=== PATIENT | female | born 1990 | race Caucasian/White ===

== ENCOUNTER 2016-12-26 07:18 | Emergency (ER) | payer SELFPAY ==
[2016-12-26 08:23] LABS: Basophils % (Auto) 0.5 % (0.0-1.8); Eosinophils % (Auto) 0.4 % (0.0-4.3); Hematocrit 38.6 % (30.3-42.9); Hemoglobin 12.4 gm/dl (10.1-14.3); Mean Corpuscular HGB Conc 32 % (30-34); Mean Corpuscular Hemoglobin 27 pg (28-32); Mean Corpuscular Volume 83 fl (79-97); Platelet Count 322 K/mm3 (140-440); Red Blood Count 4.66 M/mm3 (3.65-5.03); Red Cell Distribution Width 13.5 % (13.2-15.2); White Blood Count 12.4 K/mm3 (4.5-11.0)
[2016-12-26 08:28] LABS: Alanine Aminotransferase 5 units/L (7-56); Albumin 4.3 g/dL (3.9-5); Albumin/Globulin Ratio 1.1 %; Alkaline Phosphatase 74 units/L (35-129); Anion Gap 17 mmol/L; Bilirubin,Total 0.2 mg/dL (0.1-1.2); Blood Urea Nitrogen 10 mg/dL (7-17); Calcium 9.7 mg/dL (8.4-10.2); Carbon Dioxide 23 mmol/L (22-30); Chloride 103.7 mmol/L (98-107); Glucose 137 mg/dL (65-100); Lipase 15 units/L (13-60); Potassium 4.7 mmol/L (3.6-5.0); Sodium 139 mmol/L (137-145); Total Protein 8.1 g/dL (6.3-8.2)
[2016-12-26 09:11] LABS: Bacteria,Urine 1+ /HPF (Negative); Bilirubin,Urine NEG (Negative); Blood,Urine NEG (Negative); Ketones,Urine TR mg/dL (Negative); Leukocyte Esterase,Urine NEG (Negative); Mucus,Urine FEW /HPF; Nitrite,Urine NEG (Negative); Protein,Urine <15 mg/dL mg/dL (Negative); Urobilinogen,Urine < 2.0 mg/dL (<2.0)
[2016-12-26] MEDS ORDERED: MORPHINE ONE (10:26)
[2016-12-26] MEDS ORDERED: NACL 0.9% 1000 ML 1,000 ML IV ONE (10:28)
[2016-12-26] MEDS ORDERED: MORPHINE IV ONE (10:28)
--- NOTE | 2016-12-26 10:34 | Emergency Department Report ---
HPI - General Chief Complaint: Abdominal Pain Time Seen by Provider: 12/26/16 10:04 - HPI HPI: 26-year-old female presents to the emergency department from home with complaint of upper abdominal pain, lower chest pain and upper back pain has been going on since 3 AM last night. This is associated with nausea and vomiting with about 12 episodes of emesis. By the end, the patient says she has just been vomiting up bile. She was given a oxycodone by her mother at about 5 AM for her discomfort. She denies any fever, shortness of breath, cough , dysuria, vaginal bleeding or discharge. She denies any past medical history. No recent travel or sick contacts at home. She does not have a primary care doctor and she is not getting insurance until the beginning of January. ED Past Medical Hx - Past Medical History Previous Medical History?: No - Surgical History Past Surgical History?: Yes Additional Surgical History: - Social History Smoking Status: Never Smoker Substance Use Type: None - Medications Home Medications: Home Medications Medication Instructions Recorded Confirmed Last Taken Type HYDROcodone/APAP 5-325 [[place] 1 each PO Q6HR PRN #10 tablet 12/26/16 Unknown Rx 5/325] Ondansetron [Zofran Odt] 4 mg PO Q8H PRN #10 tab.rapdis 12/26/16 Unknown Rx ED Review of Systems ROS: Stated complaint: PAIN MIDCHEST AREA AND ABD PAIN Other details as noted in HPI Comment: All other systems reviewed and negative Constitutional: denies: chills, fever Eyes: denies: eye pain, eye discharge, vision change ENT: denies: ear pain, throat pain Respiratory: denies: cough, shortness of breath, wheezing Cardiovascular: chest pain. denies: palpitations Gastrointestinal: abdominal pain, nausea, vomiting Genitourinary: denies: urgency, dysuria, discharge Musculoskeletal: back pain. denies: arthralgia Skin: denies: rash, lesions Neurological: denies: headache, weakness, paresthesias Physical Exam - Physical Exam Vital Signs: Vital Signs 12/26/16 12/26/16 07:38 09:16 Temperature 98.4 F Pulse Rate 66 62 Respiratory 20 16 Rate Blood Pressure 125/83 Blood Pressure 112/58 [Left] O2 Sat by Pulse 99 100 Oximetry Physical Exam: GENERAL: The patient is well-developed well-nourished. HEENT: Normocephalic. Atraumatic. Extraocular motions are intact. Patient has moist mucous membranes. Pupils equal reactive to light bilaterally. NECK: Supple. Trachea is midline. CHEST/LUNGS: Clear to auscultation. There is no respiratory distress noted. HEART/CARDIOVASCULAR: Regular. There is no tachycardia. There is no gallop rub or murmur. ABDOMEN: Abdomen is soft. Right upper quadrant abdominal tenderness to palpation. No guarding rebound tenderness. Patient has normal bowel sounds. There is no abdominal distention. SKIN: There is no rash. There is no edema. There is no diaphoresis. NEURO: The patient is awake, alert, and oriented. The patient is cooperative. The patient has no focal neurologic deficits. The patient has normal speech. MUSCULOSKELETAL: There is no tenderness or deformity. There is no limitation range of motion. There is no evidence of acute injury. BACK: No midline thoracic or lumbar tenderness to palpation or deformity. ED Course Vital Signs 12/26/16 12/26/16 07:38 09:16 Temperature 98.4 F Pulse Rate 66 62 Respiratory 20 16 Rate Blood Pressure 125/83 Blood Pressure 112/58 [Left] O2 Sat by Pulse 99 100 Oximetry ED Medical Decision Making - Lab Data Result diagrams: 12/26/16 07:50 12/26/16 07:50 - EKG Data -: EKG Interpreted by Me EKG shows normal: sinus rhythm, axis, intervals, QRS complexes, ST-T waves Rate: bradycardia (55 bpm) - EKG Data When compared to previous EKG there are: previous EKG unavailable Interpretation: normal EKG (with mild bradycardia) - Radiology Data Radiology results: report reviewed, image reviewed interpreted by me: Chest x-ray did not show any acute process. Heart is normal shape and size. No effusions. No pneumothorax. No signs of pneumonia seen. Abdominal x-ray shows nonspecific nonobstructive bowel gas and some stool throughout the colon. Abdominal ultrasound shows multiple gallstones but no signs of cholecystitis. - Medical Decision Making 26-year-old female presents with upper abdominal pain, lower chest pain and some mid back pain since last night along with some nausea and vomiting. Patient has reproducible abdominal pain to palpation on examination. Patient's labs are unremarkable including no signs of infection in the blood or urine, electrolyte abnormalities, renal insufficiency and she has normal belly labs including bilirubin, lipase and LFTs. Patient is not . Chest x-ray is not show any acute process. Abdominal x-ray shows some stool throughout the colon but otherwise no acute process. But the areas of the patient's discomfort along with the nausea and vomiting I had suspicion for cholelithiasis. Ultrasound confirms cholelithiasis without cholecystitis. Patient will be discharged home with nausea medication, pain medication and referral for general surgery. She will return to the ER with any worsening of her symptoms or any acute distress. - Differential Diagnosis cholelithiasis, cholecystitis, pancreatitis, gastritis, [place] Critical Care Time: No Critical care attestation.: If time is entered above; I have spent that time in minutes in the direct care of this critically ill patient, excluding procedure time. ED Disposition Clinical Impression: Cholelithiasis Qualifiers: Cholelithiasis location: gallbladder Cholecystitis presence: without cholecystitis Biliary obstruction: without biliary obstruction Qualified Code(s) : K80.20 - Calculus of gallbladder without cholecystitis without obstruction Abdominal pain Qualifiers: Abdominal location: right upper quadrant Qualified Code(s): R10.11 - Right upper quadrant pain Nausea & vomiting Qualifiers: Vomiting type: unspecified Vomiting Intractability: non-intractable Qualified Code(s): R11.2 - Nausea with vomiting, unspecified Disposition: DISCHARGED TO HOME OR SELFCARE Is pt being admited?: No Condition: Stable Instructions: Abdominal Pain (ED), Biliary Colic (ED), Acute Nausea and Vomiting (ED) Additional Instructions: Please follow-up with a primary care doctor. I referral for a local general surgeon, Dr. Ragland, to establish care and discuss your gallstones. Return to the emergency department with any worsening of your symptoms, intractable fever , intractable vomiting, or any acute distress. You've been prescribed a medication that is sedating. Therefore this medication cannot be mixed with alcohol, or taken prior to driving, working, or being responsible for children. Prescriptions: HYDROcodone/APAP 5-325 [[place] 5/325] 1 each PO Q6HR PRN #10 tablet PRN Reason: Pain Ondansetron [Zofran Odt] 4 mg PO Q8H PRN #10 tab.rapdis PRN Reason: Nausea Referrals: PRIMARY CARE, [Primary Care Provider] - 3-5 Days KAYE RAGLAND MD [Staff Physician] - 3-5 Days Time of Disposition: 12:39
--- NOTE | 2016-12-26 11:30 | XRay Report ---
ABDOMINAL SERIES: History: Abdominal pain, chest pain. Supine and upright views of the abdomen and frontal view of the chest are submitted. There is gas mixed with moderate stool throughout the colon. There are no dilated loops of bowel or air-fluid levels. There is no free intraperitoneal gas. The lungs are clear. IMPRESSION: Fecal retention.
--- NOTE | 2016-12-26 12:13 | Ultrasound Report ---
Abdominal ultrasound. History: Abdominal pain. Findings: The abdominal aorta and liver are normal. There multiple gallstones. The wall the gallbladder is not thickened. The Common bile duct is normal in caliber. The kidneys are normal in size and configuration with no evidence of mass or hydronephrosis. The pancreas is normal. The spleen is at the upper limits of normal in size with no focal abnormalities. Impression: Multiple gallstones.
[2016-12-26 12:56] VITALS: BP 114/60
== END 2016-12-26 12:55 | disposition home or self-care (01) ==
LOC: ED 07:18
DX: K80.20 Calculus of gallbladder without cholecystitis without obstruction (principal)
CPT/HCPCS: 36415; 74022; 76700; 80053; 81001; 81025; 83690; 84484; 85025; 93005; 93010; 96361; 96374; 99284; J2270; J7030